=== PATIENT | female | born 1965 | race Caucasian/White ===

== ENCOUNTER → 2017-12-12 | Outpatient (CLI) | payer BC ==
[2017-12-12 08:36] LABS: BASO # 0.1 (0.02-0.10); EOS # 0.2 (0.04-0.40); EOS % 2.3 % (1.0-5.0); HEMOGLOBIN 16.9 g/dL (12.5-16.0); LYMPH# 1.2 (1.50-4.00); MEAN CELL VOLUME 91 fl (78-100); MEAN CORPUSCULAR HEMOGLOBIN 32 pg (27-31); MEAN CORPUSCULAR HGB CONC 35 g/dL (33-37); MEAN PLATELET VOLUME 9.7 fl (7.4-10.4); MONO # 0.9 (0.20-0.80); NEU # 5.1 (1.40-6.50); PLATELET COUNT 231 K/mm3 (130-400); RED BLOOD COUNT 5.37 M/mm3 (4.10-5.30); RED CELL DISTRIBUTION WIDTH 12.2 % (11.5-14.5); WHITE BLOOD COUNT 7.4 K/mm3 (4.8-10.8)
[2017-12-12 08:49] LABS: ALBUMIN 4.6 g/dL (3.5-5.0); BUN/CREATININE RATIO 13.5 (6.0-26.0); CALCIUM 9.4 mg/dL (8.4-10.2); POTASSIUM 4.1 mmol/L (3.6-5.0); TOTAL BILIRUBIN 0.5 mg/dL (0.2-1.3); TOTAL PROTEIN 8.5 g/dL (6.3-8.2)
== END ==
LOC: LAB 08:20
PROVIDERS: Nurse Practitioner Family
DX: Z00.00 Encounter for general adult medical examination without abnormal findings (principal); E78.2 Mixed hyperlipidemia; I10 Essential (primary) hypertension; Z12.31 Encounter for screening mammogram for malignant neoplasm of breast; Z71.6 Tobacco abuse counseling; Z23 Encounter for immunization

== ENCOUNTER → 2019-04-15 | Outpatient (CLI) | payer BC ==
[2019-04-15 08:44] LABS: EOS # 0.1 (0.04-0.40); EOS % 1.9 % (1.0-5.0); HEMATOCRIT 49.5 % (37.0-47.0); LYMPH# 1.4 (1.50-4.00); MEAN CELL VOLUME 92 fl (78-100); MEAN CORPUSCULAR HEMOGLOBIN 32 pg (27-31); MEAN CORPUSCULAR HGB CONC 34 g/dL (33-37); MEAN PLATELET VOLUME 9.2 fl (7.4-10.4); MONO # 0.7 (0.20-0.80); NEU # 4.2 (1.40-6.50); PLATELET COUNT 285 K/mm3 (130-400); RED BLOOD COUNT 5.37 M/mm3 (4.10-5.30); RED CELL DISTRIBUTION WIDTH 12.7 % (11.5-14.5); WHITE BLOOD COUNT 6.5 K/mm3 (4.8-10.8)
[2019-04-16 16:19] LABS: ALBUMIN 4.1 g/dL (3.5-5.0)
[2019-04-16 16:20] LABS: POTASSIUM 4.6 mmol/L (3.5-5.1)
[2019-04-16 16:21] LABS: CALCIUM 9.3 mg/dL (8.3-10.5)
[2019-04-16 16:22] LABS: TOTAL PROTEIN 7.1 g/dL (6.4-8.3)
[2019-04-16 16:24] LABS: TOTAL BILIRUBIN 0.3 mg/dL (0.2-1.2)
== END ==
LOC: LAB 08:01
PROVIDERS: Physician Assistant
DX: Z12.31 Encounter for screening mammogram for malignant neoplasm of breast (principal); I10 Essential (primary) hypertension; E78.5 Hyperlipidemia, unspecified; J45.40 Moderate persistent asthma, uncomplicated; F41.9 Anxiety disorder, unspecified; J01.90 Acute sinusitis, unspecified

== ENCOUNTER → 2019-12-21 | Outpatient (CLI) | payer BC ==
[2019-12-21 09:32] LABS: BASO # 0.1 (0.02-0.10); EOS # 0.2 (0.04-0.40); EOS % 2.9 % (1.0-5.0); HEMATOCRIT 49.6 % (37.0-47.0); HEMOGLOBIN 17.3 g/dL (12.5-16.0); LYMPH# 1.3 (1.50-4.00); MEAN CELL VOLUME 92 fl (78-100); MEAN CORPUSCULAR HEMOGLOBIN 32 pg (27-31); MEAN CORPUSCULAR HGB CONC 35 g/dL (33-37); MEAN PLATELET VOLUME 9.5 fl (7.4-10.4); MONO # 0.8 (0.20-0.80); NEU # 5.9 (1.40-6.50); PLATELET COUNT 229 K/mm3 (130-400); RED BLOOD COUNT 5.39 M/mm3 (4.10-5.30); RED CELL DISTRIBUTION WIDTH 12.5 % (11.5-14.5); WHITE BLOOD COUNT 8.3 K/mm3 (4.8-10.8)
[2019-12-21 09:41] LABS: ALBUMIN 4.4 g/dL (3.5-5.0); POTASSIUM 4.3 mmol/L (3.5-5.1)
[2019-12-21 09:42] LABS: CALCIUM 9.6 mg/dL (8.3-10.5)
[2019-12-21 09:44] LABS: TOTAL PROTEIN 7.5 g/dL (6.4-8.3)
[2019-12-21 09:45] LABS: TOTAL BILIRUBIN 0.6 mg/dL (0.2-1.2)
[2019-12-21 21:57] LABS: HEPATITIS C ANTIBODY Negative (Negative)
== END ==
LOC: LAB 09:22
PROVIDERS: Physician Assistant
DX: Z00.00 Encounter for general adult medical examination without abnormal findings (principal); Z20.5 Contact with and (suspected) exposure to viral hepatitis; Z12.31 Encounter for screening mammogram for malignant neoplasm of breast; J45.40 Moderate persistent asthma, uncomplicated; I10 Essential (primary) hypertension; E78.5 Hyperlipidemia, unspecified; F41.9 Anxiety disorder, unspecified; J30.89 Other allergic rhinitis

== ENCOUNTER → 2020-02-03 | Outpatient (CLI) | payer BC | LOC: LAB 11:38 | DX: M79.10 Myalgia, unspecified site (principal); R05 Cough; R50.9 Fever, unspecified; R06.02 Shortness of breath ==

== ENCOUNTER → 2021-06-01 | Outpatient (CLI) | payer BC ==
[2021-06-01 09:35] LABS: BASO # 0.04 K/mm3 (0.02-0.10); EOS # 0.11 K/mm3 (0.04-0.40); EOS % 1.3 % (1.0-5.0); HEMATOCRIT 51.6 % (37.0-47.0); HEMOGLOBIN 17.2 g/dL (12.5-16.0); LYMPH# 1.63 K/mm3 (1.50-4.00); MEAN CELL VOLUME 96 fl (78-100); MEAN CORPUSCULAR HEMOGLOBIN 32 pg (27-31); MEAN CORPUSCULAR HGB CONC 33 g/dL (33-37); MEAN PLATELET VOLUME 9.3 fl (7.4-10.4); MONO # 1.03 K/mm3 (0.20-0.80); NEU # 5.31 K/mm3 (1.40-6.50); PLATELET COUNT 260 K/mm3 (130-400); RED BLOOD COUNT 5.35 M/mm3 (4.10-5.30); RED CELL DISTRIBUTION WIDTH 12.5 % (11.5-14.5); WHITE BLOOD COUNT 8.2 K/mm3 (4.8-10.8)
[2021-06-01 09:48] LABS: ALBUMIN 4.1 g/dL (3.5-5.0); POTASSIUM 3.9 mmol/L (3.5-5.1)
[2021-06-01 09:49] LABS: CALCIUM 9.9 mg/dL (8.3-10.5)
[2021-06-01 09:51] LABS: TOTAL PROTEIN 7.8 g/dL (6.4-8.3)
== END ==
LOC: LAB 09:15
PROVIDERS: Physician Assistant
DX: Z00.00 Encounter for general adult medical examination without abnormal findings (principal); Z13.29 Encounter for screening for other suspected endocrine disorder; I10 Essential (primary) hypertension; E78.5 Hyperlipidemia, unspecified

== ENCOUNTER → 2023-04-24 | Outpatient (CLI) | payer BC | LOC: RAD 07:36 | DX: K76.0 Fatty (change of) liver, not elsewhere classified (principal); E80.1 Porphyria cutanea tarda ==

== ENCOUNTER → 2023-08-22 | Outpatient (CLI) | payer BC ==
[2023-08-22 10:34] LABS: BASO # 0.04 K/mm3 (0.02-0.10); EOS # 0.13 K/mm3 (0.04-0.40); EOS % 1.8 % (1.0-5.0); HEMATOCRIT 41.9 % (37.0-47.0); HEMOGLOBIN 14.1 g/dL (12.5-16.0); LYMPH# 1.72 K/mm3 (1.50-4.00); MEAN CELL VOLUME 92 fl (78-100); MEAN CORPUSCULAR HEMOGLOBIN 31 pg (27-31); MEAN CORPUSCULAR HGB CONC 34 g/dL (33-37); MEAN PLATELET VOLUME 8.7 fl (7.4-10.4); MONO # 0.81 K/mm3 (0.20-0.80); NEU # 4.64 K/mm3 (1.40-6.50); PLATELET COUNT 260 K/mm3 (130-400); RED BLOOD COUNT 4.54 M/mm3 (4.10-5.30); RED CELL DISTRIBUTION WIDTH 12.1 % (11.5-14.5); WHITE BLOOD COUNT 7.4 K/mm3 (4.8-10.8)
== END ==
LOC: LAB 10:24
PROVIDERS: Internal Medicine
DX: E80.1 Porphyria cutanea tarda (principal)

== ENCOUNTER → 2023-09-05 | Outpatient (CLI) | payer BC ==
[2023-09-05 10:44] LABS: HEMATOCRIT 40.5 % (37.0-47.0); HEMOGLOBIN 13.6 g/dL (12.5-16.0); MEAN CELL VOLUME 93 fl (78-100); MEAN CORPUSCULAR HEMOGLOBIN 31 pg (27-31); MEAN CORPUSCULAR HGB CONC 34 g/dL (33-37); MEAN PLATELET VOLUME 8.9 fl (7.4-10.4); PLATELET COUNT 260 K/mm3 (130-400); RED BLOOD COUNT 4.34 M/mm3 (4.10-5.30); RED CELL DISTRIBUTION WIDTH 12.2 % (11.5-14.5); WHITE BLOOD COUNT 6.3 K/mm3 (4.8-10.8)
[2023-09-05 10:55] LABS: ALBUMIN 4.3 g/dL (3.5-5.0)
[2023-09-05 10:56] LABS: CALCIUM 9.2 mg/dL (8.3-10.5)
[2023-09-05 10:57] LABS: TOTAL PROTEIN 7.2 g/dL (6.4-8.3)
[2023-09-05 10:59] LABS: TOTAL BILIRUBIN 0.6 mg/dL (0.2-1.2)
[2023-09-05 15:13] LABS: BASO # 0.05 K/mm3 (0.02-0.10); EOS % 1.5 % (1.0-5.0); MONO # 0.63 K/mm3 (0.20-0.80); NEU # 4.28 K/mm3 (1.40-6.50)
== END ==
LOC: LAB 10:20
PROVIDERS: Internal Medicine
DX: E80.1 Porphyria cutanea tarda (principal)

== ENCOUNTER → 2023-09-08 | Outpatient (CLI) | payer BC | LOC: RAD 11:15 | DX: M19.041 Primary osteoarthritis, right hand (principal) ==

== ENCOUNTER → 2023-09-19 | Outpatient (CLI) | payer BC ==
[2023-09-19 11:25] LABS: BASO # 0.05 K/mm3 (0.02-0.10); EOS # 0.12 K/mm3 (0.04-0.40); EOS % 1.9 % (1.0-5.0); HEMATOCRIT 39.6 % (37.0-47.0); HEMOGLOBIN 13.4 g/dL (12.5-16.0); LYMPH# 1.48 K/mm3 (1.50-4.00); MEAN CELL VOLUME 93 fl (78-100); MEAN CORPUSCULAR HEMOGLOBIN 32 pg (27-31); MEAN CORPUSCULAR HGB CONC 34 g/dL (33-37); MEAN PLATELET VOLUME 9.1 fl (7.4-10.4); MONO # 0.76 K/mm3 (0.20-0.80); NEU # 3.86 K/mm3 (1.40-6.50); PLATELET COUNT 289 K/mm3 (130-400); RED BLOOD COUNT 4.26 M/mm3 (4.10-5.30); RED CELL DISTRIBUTION WIDTH 12.1 % (11.5-14.5); WHITE BLOOD COUNT 6.3 K/mm3 (4.8-10.8)
== END ==
LOC: LAB 10:54
PROVIDERS: Internal Medicine
DX: E80.1 Porphyria cutanea tarda (principal)

== ENCOUNTER → 2023-09-29 | Outpatient (CLI) | payer BC ==
[2023-09-29 11:29] LABS: HEMATOCRIT 42.3 % (37.0-47.0); HEMOGLOBIN 14.5 g/dL (12.5-16.0)
== END ==
LOC: LAB 11:17
PROVIDERS: Internal Medicine
DX: E80.1 Porphyria cutanea tarda (principal)

== ENCOUNTER → 2023-11-07 | Outpatient (CLI) | payer BC ==
[2023-11-07 10:49] LABS: BASO # 0.04 K/mm3 (0.02-0.10); EOS # 0.09 K/mm3 (0.04-0.40); EOS % 1.4 % (1.0-5.0); HEMATOCRIT 43.2 % (37.0-47.0); HEMOGLOBIN 14.6 g/dL (12.5-16.0); LYMPH# 1.34 K/mm3 (1.50-4.00); MEAN CELL VOLUME 91 fl (78-100); MEAN CORPUSCULAR HEMOGLOBIN 31 pg (27-31); MEAN CORPUSCULAR HGB CONC 34 g/dL (33-37); MONO # 0.73 K/mm3 (0.20-0.80); NEU # 4.28 K/mm3 (1.40-6.50); PLATELET COUNT 267 K/mm3 (130-400); RED BLOOD COUNT 4.77 M/mm3 (4.10-5.30); RED CELL DISTRIBUTION WIDTH 11.4 % (11.5-14.5); WHITE BLOOD COUNT 6.5 K/mm3 (4.8-10.8)
[2023-11-07 11:50] LABS: ALBUMIN 4.3 g/dL (3.5-5.0)
[2023-11-07 11:52] LABS: CALCIUM 9.5 mg/dL (8.3-10.5)
[2023-11-07 11:53] LABS: TOTAL PROTEIN 7.6 g/dL (6.4-8.3)
[2023-11-07 11:55] LABS: TOTAL BILIRUBIN 0.4 mg/dL (0.2-1.2)
== END ==
LOC: LAB 09:54
PROVIDERS: Internal Medicine
DX: E80.1 Porphyria cutanea tarda (principal)

== ENCOUNTER → 2023-12-15 | Outpatient (CLI) | payer BC ==
[2023-12-15 10:32] LABS: HEMATOCRIT 41.2 % (37.0-47.0); HEMOGLOBIN 14.3 g/dL (12.5-16.0)
== END ==
LOC: LAB 10:21
PROVIDERS: Internal Medicine
DX: E80.1 Porphyria cutanea tarda (principal)